=== PATIENT | female | born 1975 | race American Indian/Alaskan Native ===

== ENCOUNTER 2019-02-16 09:49 | Emergency (ER) | payer MEDICARE ==
[2019-02-16] MEDS ORDERED: LOPRESSOR PO ONE (10:39)
--- NOTE | 2019-02-16 10:42 | Emergency Department Report ---
ED Chest Pain HPI - General Chief Complaint: Chest Pain Stated Complaint: CHEST TIGHTNESS ON L SIDE Time Seen by Provider: 02/16/19 10:33 Source: patient Mode of arrival: Ambulatory Limitations: No Limitations - History of Present Illness Initial Comments: Patient is 43 years old female with history of hypertension, noncompliant with her medication. Patient presented to the ER complaining of chest pain started last night. Patient described her pain as heaviness with no radiation. Patient denied any shortness of breath, fever or chills. Patient found to have a blood pressure of 213/90. MD Complaint: chest pain -: Last night Onset: during rest Pain Location: left chest Quality: heaviness - Related Data Allergies Allergy/AdvReac Type Severity Reaction Status Date / Time codeine Allergy Nausea Verified 02/16/19 09:51 Heart Score - HEART Score History: Slightly suspicious EKG: Normal Age: < 45 Risk factors: 1-2 risk factors Troponin: < normal limit HEART Score: 1 - Critical Actions Critical Actions: 0-3 pts:0.9-1.7%risk of adverse cardiac event.Candidate for discharge ED Review of Systems ROS: Stated complaint: CHEST TIGHTNESS ON L SIDE Other details as noted in HPI Comment: All other systems reviewed and negative Constitutional: denies: chills, fever Respiratory: denies: cough, shortness of breath, SOB with exertion Cardiovascular: chest pain Gastrointestinal: denies: abdominal pain, nausea, vomiting, diarrhea, constipation, hematemesis, melena, hematochezia Musculoskeletal: denies: back pain Neurological: denies: headache, weakness, numbness, paresthesias, confusion, abnormal gait ED Past Medical Hx - Past Medical History Previous Medical History?: Yes Hx Hypertension: Yes Additional medical history: fibromyalgia - Surgical History Past Surgical History?: Yes Additional Surgical History: x 2 - Social History Smoking Status: Current Some Day Smoker Substance Use Type: Alcohol ED Physical Exam - General Limitations: No Limitations General appearance: alert, in no apparent distress - Head Head exam: Present: atraumatic, normocephalic, normal inspection - Eye Eye exam: Present: normal appearance - ENT ENT exam: Present: normal exam, normal orophraynx, mucous membranes moist - Neck Neck exam: Present: normal inspection, full ROM. Absent: tenderness, meningismus, lymphadenopathy - Respiratory Respiratory exam: Present: normal lung sounds bilaterally - Cardiovascular Cardiovascular Exam: Present: regular rate, normal rhythm, normal heart sounds - GI/Abdominal GI/Abdominal exam: Present: soft, normal bowel sounds. Absent: distended, tenderness, guarding, rebound, rigid, organomegaly, mass, bruit, pulsatile mass, hernia - Extremities Exam Extremities exam: Present: normal inspection, full ROM, normal capillary refill - Back Exam Back exam: Present: normal inspection, full ROM. Absent: CVA tenderness (R), CVA tenderness (L) - Neurological Exam Neurological exam: Present: alert, oriented X3, CN II-XII intact, normal gait, reflexes normal - Psychiatric Psychiatric exam: Present: normal mood - Skin Skin exam: Present: warm, intact, normal color ED Course Vital Signs 02/16/19 02/16/19 02/16/19 10:03 11:13 11:14 Temperature 98.8 F Pulse Rate 103 H 99 H 100 H Respiratory 16 20 Rate Blood Pressure 211/95 182/102 Blood Pressure 182/102 [Left] O2 Sat by Pulse 100 99 Oximetry 02/16/19 02/16/19 02/16/19 12:43 13:07 13:31 Temperature Pulse Rate 87 73 72 Respiratory Rate Blood Pressure 189/103 191/91 170/87 Blood Pressure [Left] O2 Sat by Pulse 99 96 Oximetry ED Medical Decision Making - Lab Data Result diagrams: 02/16/19 10:14 02/16/19 10:14 - EKG Data -: EKG Interpreted by Tn EKG shows normal: sinus rhythm Rate: normal - EKG Data Interpretation: no acute changes - Radiology Data Radiology results: report reviewed - Medical Decision Making Patient is 43 years old female with history of hypertension, noncompliant with her medication. Patient presented to the ER complaining of chest pain started last night. Patient described her pain as heaviness with no radiation. Patient denied any shortness of breath, fever or chills. Patient found to have a blood pressure of 213/90. Patient received metoprolol and clonidine. Patient stated that she is feeling much better. Labs reviewed and is unremarkable including 2 sets of troponin. Chest x-ray is unremarkable. Patient stated that chest pain is completely resolved. Patient advised to follow-up with her primary care physician in the next 2-3 days and return to the ER if symptoms are not improved. Critical care attestation.: If time is entered above; I have spent that time in minutes in the direct care of this critically ill patient, excluding procedure time. ED Disposition Clinical Impression: Chest pain, Malignant hypertension Disposition: DC-01 TO HOME OR SELFCARE Is pt being admited?: No Condition: Stable Instructions: Chest Pain (ED), Hypertension (ED) Referrals: PRIMARY CARE, [Primary Care Provider] - 3-5 Days
--- NOTE | 2019-02-16 10:51 | XRay Report ---
CHEST 2 VIEWS INDICATION: Chest Pain. COMPARISON: None FINDINGS: Support devices: None. Heart: Within normal limits. Lungs/pleura: No acute air space or interstitial disease. No pneumothorax. Additional findings: None. IMPRESSION: Chest x-ray within normal limits. Signer Name: Manuelito Seth Jr, MD Signed: 02/16/2019 10:46 AM Workstation Name: [id number]
[2019-02-16 10:56] LABS: Basophils % (Auto) 0.5 % (0.0-1.8); Eosinophils # (Auto) 0.1 K/mm3 (0.0-0.4); Eosinophils % (Auto) 1.5 % (0.0-4.3); Hematocrit 34.1 % (30.3-42.9); Hemoglobin 11.2 gm/dl (10.1-14.3); Lymphocytes # (Auto) 1.6 K/mm3 (1.2-5.4); Mean Corpuscular HGB Conc 33 % (30-34); Mean Corpuscular Volume 77 fl (79-97); Monocytes # (Auto) 0.3 K/mm3 (0.0-0.8); Monocytes % (Auto) 3.7 % (0.0-7.3); Platelet Count 537 K/mm3 (140-440); Red Blood Count 4.45 M/mm3 (3.65-5.03); Red Cell Distribution Width 17.3 % (13.2-15.2)
[2019-02-16 11:18] LABS: Alanine Aminotransferase 8 units/L (7-56); Albumin 4.4 g/dL (3.9-5); BUN/Creatinine Ratio 11; Blood Urea Nitrogen 8 mg/dL (7-17); Calcium 9.7 mg/dL (8.4-10.2); Hemolysis Index 5
[2019-02-16 12:08] LABS: Bacteria,Urine 1+ /HPF (Negative); Bilirubin,Urine NEG (Negative); Blood,Urine SM (Negative); Color,Urine Straw (Yellow); Mucus,Urine FEW /HPF; Protein,Urine <15 mg/dL mg/dL (Negative); Urobilinogen,Urine < 2.0 mg/dL (<2.0)
[2019-02-16] MEDS ORDERED: CATAPRES ONE (12:40)
[2019-02-16] MEDS ORDERED: CATAPRES PO ONE (12:42)
[2019-02-16 14:10] VITALS: BP 154/86
== END 2019-02-16 14:09 | disposition home or self-care (01) ==
LOC: ED 09:49
DX: I10 Essential (primary) hypertension (principal); M79.7 Fibromyalgia; F17.200 Nicotine dependence, unspecified, uncomplicated; Z88.5 Allergy status to narcotic agent
CPT/HCPCS: 36415; 71046; 80053; 81001; 84484; 85025; 93005; 93010; 99284

== ENCOUNTER 2019-02-21 13:02 | Observation (INO) | payer MEDICARE, OTHER ==
[2019-02-21] MEDS ORDERED: ASPIRIN PO ONE (13:28)
--- NOTE | 2019-02-21 13:29 | Event Note ---
ED Screening Note Date of service: 02/21/19 Time: 13:25 ED Screening Note: This is a 43 y.o. F. that presents to the ER with palpitations and chest pain. Reports symptoms started yesterday and progressing. PMH anxiety, fibromyalgia, & HTN Current smoker This initial assessment/diagnostic orders/clinical plan/treatment(s) is/are subject to change based on patients health status, clinical progression and re- assessment by fellow clinical providers in the ED. Further treatment and workup at subsequent clinical providers discretion. Patient/guardian urged not to elope from the ED as their condition may be serious if not clinically assessed and managed. Initial orders include: Labs, EKG, & CXR
[2019-02-21 14:24] LABS: Basophils # (Auto) 0.1 K/mm3 (0.0-0.1); Basophils % (Auto) 0.8 % (0.0-1.8); Eosinophils # (Auto) 0.1 K/mm3 (0.0-0.4); Eosinophils % (Auto) 1.3 % (0.0-4.3); Hematocrit 35.1 % (30.3-42.9); Hemoglobin 11.7 gm/dl (10.1-14.3); Lymphocytes # (Auto) 2.1 K/mm3 (1.2-5.4); Lymphocytes % (Auto) 19.3 % (13.4-35.0); Mean Corpuscular HGB Conc 33 % (30-34); Mean Corpuscular Volume 76 fl (79-97); Monocytes # (Auto) 0.5 K/mm3 (0.0-0.8); Monocytes % (Auto) 4.5 % (0.0-7.3); Platelet Count 554 K/mm3 (140-440); Red Blood Count 4.63 M/mm3 (3.65-5.03); Red Cell Distribution Width 16.7 % (13.2-15.2)
--- NOTE | 2019-02-21 14:44 | Emergency Department Report ---
ED Chest Pain HPI - General Chief Complaint: Chest Pain Stated Complaint: CHEST PAIN/PALPATION Time Seen by Provider: 02/21/19 13:25 Source: patient Mode of arrival: Ambulatory Limitations: No Limitations - History of Present Illness Initial Comments: This is a 43-year-old female that was seen at this facility on 02/18/2019 for chest pain and uncontrolled hypertension. Recurrent pain since last night which has affected her left arm and feels like tightness in the substernal area as well as the left arm. She states that she has felt anxious. She is felt as if her heart has been racing. She has been bit sweaty but not diaphoretic. She does refer nausea vomiting or shortness of breath sometimes. Patient states that quite a few years ago she had some vague evaluation for chest pain. She does not describe a heart cath. She does not really know whether stress test his either. In any case, she has no known history of coronary artery disease. She was given aspirin on arrival. MD Complaint: chest pain -: Gradual, days(s) Onset: during rest Pain Location: substernal Pain Radiation: LUE Severity: moderate Quality: tightness Consistency: intermittent Improves With: nothing Worsens With: nothing Context: other (none of the above) re: denies: diaphoresis (some sweating) Other Symptoms: denies: cough, fever, syncope Treatments Prior to Arrival: none Aspirin use within the Past 7 Days: (0) No - Related Data Previous Rx's Medication Instructions Recorded Last Taken Type amLODIPine [Norvasc] 10 mg PO DAILY #30 tab 02/16/19 Unknown Rx Allergies Allergy/AdvReac Type Severity Reaction Status Date / Time codeine Allergy Nausea Verified 02/16/19 09:51 Heart Score - HEART Score History: Moderately suspicious EKG: Significant ST-depression Age: 45-65 Risk factors: 1-2 risk factors Troponin: < normal limit HEART Score: 5 - Critical Actions Critical Actions: 4-6 pts:12-16.6% risk of adverse cardiac event. Should be admitted ED Review of Systems ROS: Stated complaint: CHEST PAIN/PALPATION Other details as noted in HPI Constitutional: denies: chills, fever Eyes: denies: eye pain, eye discharge, vision change ENT: denies: ear pain, throat pain Respiratory: denies: cough, wheezing Cardiovascular: chest pain. denies: palpitations Endocrine: no symptoms reported Gastrointestinal: denies: abdominal pain, nausea, diarrhea Genitourinary: denies: urgency, dysuria, discharge Musculoskeletal: denies: back pain, joint swelling, arthralgia Skin: denies: rash, lesions Neurological: denies: headache, weakness, paresthesias Psychiatric: denies: anxiety, depression Hematological/Lymphatic: denies: easy bleeding, easy bruising ED Past Medical Hx - Past Medical History Hx Hypertension: Yes Additional medical history: fibromyalgia - Surgical History Additional Surgical History: x 2 - Social History Smoking Status: Current Some Day Smoker Substance Use Type: Alcohol, Marijuana - Medications Home Medications: Home Medications Medication Instructions Recorded Confirmed Last Taken Type amLODIPine [Norvasc] 10 mg PO DAILY #30 tab 02/16/19 Unknown Rx ED Physical Exam - General Limitations: No Limitations General appearance: alert, in no apparent distress - Head Head exam: Present: atraumatic, normocephalic - Eye Eye exam: Present: normal appearance. Absent: scleral icterus - ENT ENT exam: Present: mucous membranes moist - Neck Neck exam: Present: normal inspection. Absent: tenderness, meningismus - Respiratory Respiratory exam: Present: normal lung sounds bilaterally. Absent: respiratory distress - Cardiovascular Cardiovascular Exam: Present: regular rate, normal rhythm. Absent: systolic murmur, diastolic murmur, rubs, gallop - GI/Abdominal GI/Abdominal exam: Present: soft, normal bowel sounds. Absent: distended, tenderness, guarding, rebound, rigid - Extremities Exam Extremities exam: Present: normal inspection, normal capillary refill. Absent: tenderness, pedal edema, joint swelling, calf tenderness - Back Exam Back exam: Present: normal inspection - Neurological Exam Neurological exam: Present: alert, oriented X3, CN II-XII intact. Absent: motor sensory deficit - Psychiatric Psychiatric exam: Present: normal affect, normal mood - Skin Skin exam: Present: warm, dry, intact, normal color. Absent: rash ED Course Vital Signs 02/21/19 02/21/19 13:26 15:31 Temperature 98.9 F Pulse Rate 126 H 106 H Respiratory 22 Rate Blood Pressure 184/108 184/85 O2 Sat by Pulse 100 Oximetry - Reevaluation(s) Reevaluation #1: Blood pressure management, and Ativan for anxiety, metoprolol. Patient was resting tachycardia. I have added a d-dimer. However patient does not seem to have a conforming history for pulmonary embolism nor any reasonable suspicion of TAD. 02/21/19 15:43 SHAHZAD score - Shahzad Score Age > 65: (0) No Aspirin use within the Past 7 Days: (0) No 3 or more CAD Risk Factors: (0) No 2 or more Angina events in past 24 hrs: (0) No Known CAD with more than 50% Stenosis: (0) No Elevated Cardiac Markers: (0) No ST Deviation Greater than 0.5mm: (1) Yes SHAHZAD Score: 1 ED Medical Decision Making - Lab Data Result diagrams: 02/21/19 14:09 02/21/19 14:09 Laboratory Results - last 24 hr 02/21/19 02/21/19 14:09 14:09 WBC 10.9 RBC 4.63 Hgb 11.7 Hct 35.1 MCV 76 L MCH 25 L MCHC 33 RDW 16.7 H Plt Count 554 H Lymph % (Auto) 19.3 [place] % (Auto) 4.5 Eos % (Auto) 1.3 Baso % (Auto) 0.8 Lymph # 2.1 [place] # 0.5 Eos # 0.1 Baso # 0.1 Seg Neutrophils % 74.1 H Seg Neutrophils # 8.1 H HCG, Qual Negative Laboratory Results - last 24 hr 02/21/19 02/21/19 02/21/19 14:09 14:09 14:09 WBC 10.9 RBC 4.63 Hgb 11.7 Hct 35.1 MCV 76 L MCH 25 L MCHC 33 RDW 16.7 H Plt Count 554 H Lymph % (Auto) 19.3 [place] % (Auto) 4.5 Eos % (Auto) 1.3 Baso % (Auto) 0.8 Lymph # 2.1 [place] # 0.5 Eos # 0.1 Baso # 0.1 Seg Neutrophils % 74.1 H Seg Neutrophils # 8.1 H Sodium 140 Potassium 3.7 Chloride 101.7 Carbon Dioxide 25 Anion Gap 17 BUN 11 Creatinine 1.0 Estimated GFR > 60 BUN/Creatinine Ratio 11 Glucose 105 H Calcium 9.6 Troponin T < 0.010 HCG, Qual Negative Laboratory Results - last 24 hr 02/21/19 02/21/19 02/21/19 14: 14:09 14:09 WBC 10.9 RBC 4.63 Hgb 11.7 Hct 35.1 MCV 76 L MCH 25 L MCHC 33 RDW 16.7 H Plt Count 554 H Lymph % (Auto) 19.3 [place] % (Auto) 4.5 Eos % (Auto) 1.3 Baso % (Auto) 0.8 Lymph # 2.1 [place] # 0.5 Eos # 0.1 Baso # 0.1 Seg Neutrophils % 74.1 H Seg Neutrophils # 8.1 H PT INR APTT Sodium 140 Potassium 3.7 Chloride 101.7 Carbon Dioxide 25 Anion Gap 17 BUN 11 Creatinine 1.0 Estimated GFR > 60 BUN/Creatinine Ratio 11 Glucose 105 H Calcium 9.6 Troponin T < 0.010 HCG, Qual Negative 02/21/19 15:22 WBC RBC Hgb Hct MCV MCH MCHC RDW Plt Count Lymph % (Auto) [place] % (Auto) Eos % (Auto) Baso % (Auto) Lymph # [place] # Eos # Baso # Seg Neutrophils % Seg Neutrophils # PT 13.2 INR 1.03 APTT 28.4 Sodium Potassium Chloride Carbon Dioxide Anion Gap BUN Creatinine Estimated GFR BUN/Creatinine Ratio Glucose Calcium Troponin T HCG, Qual - EKG Data -: EKG Interpreted by Ma EKG shows normal: sinus rhythm Rate: tachycardia - EKG Data Interpretation: other (nonspecific inferior ST depressions, QS in V2 possibly consistent with old zone. No significant change from 02/18/2019) Chest x-ray shows normal mediastinum and normal cardiac silhouette, no acute process 02/21/19 15:48 Critical care attestation.: If time is entered above; I have spent that time in minutes in the direct care of this critically ill patient, excluding procedure time. ED Disposition Clinical Impression: Uncontrolled hypertension, Tachycardia Chest pain Qualifiers: Chest pain type: unspecified Qualified Code(s): R07.9 - Chest pain, unspecified Disposition: OP ADMIT IP TO THIS HOSP Is pt being admited?: Yes Does the pt Need Aspirin: Yes Condition: Stable Instructions: Chest Pain (ED), Hypertension (ED) Time of Disposition: 15:49
[2019-02-21 14:49] LABS: BUN/Creatinine Ratio 11; Blood Urea Nitrogen 11 mg/dL (7-17); Calcium 9.6 mg/dL (8.4-10.2); Hemolysis Index 2
[2019-02-21] MEDS ORDERED: LOPRESSOR PO ONE (14:57)
[2019-02-21] MEDS ORDERED: ATIVAN IV ONE (14:57)
[2019-02-21] MEDS ORDERED: NITRO-BID 2% TP ONE (14:58)
[2019-02-21 15:48] LABS: INR 1.03 (0.87-1.13)
[2019-02-21 15:49] LABS: Partial Thromboplastin Time 28.4 Sec. (24.2-36.6)
[2019-02-21 16:12] LABS: Free T4 (Free Thyroxine) 1.33 ng/dL (0.76-1.46)
[2019-02-21 16:50] LABS: Creatine Kinase MB < 1.0 ng/mL (0.0-4.0)
[2019-02-21 17:10] LABS: Alanine Aminotransferase 8 units/L (7-56); Albumin 4.6 g/dL (3.9-5)
[2019-02-21 17:20] LABS: Bilirubin,Direct < 0.2 mg/dL (0-0.2)
--- NOTE | 2019-02-21 19:13 | XRay Report ---
CHEST 1 VIEW INDICATION: Chest Pain. COMPARISON: 02/16/2019. FINDINGS: Support devices: None. Heart: Normal. Lungs/Pleura: No acute pulmonary or pleural findings. IMPRESSION: 1. No acute findings. Signer Name: Reynold Nicole MD Signed: 02/21/2019 7:09 PM Workstation Name: [id number]
[2019-02-21] MEDS ORDERED: TYLENOL PO PRN ×2 (20:12→21:58)
[2019-02-21] MEDS ORDERED: RESTORIL PO PRN (20:39)
--- NOTE | 2019-02-21 21:45 | History and Physical Report ---
History of Present Illness Date of examination: 02/21/19 Date of admission: 02/21/19 15:35 Chief complaint: Chest pain since a.m. History of present illness: 42-year-old female with history of hypertension--noncompliant and not taking her medications for the last 3 months comes in for chest pain and high blood pressure. Patient has chest pain since last night which is retrosternal and precordial. Chest pain radiating to left arm. No diaphoresis or shortness of breath. Her blood pressure has been very high in the emergency room. Heart blood pressure was 184/108. In the emergency room. No exacerbating or relieving factors. Chest pain is exertional related. Past Medical History Hx Hypertension: Yes Additional medical history: fibromyalgia Surgical History Additional Surgical History: x 2 Social History Smoking Status: Current Some Day Smoker Substance Use Type: Alcohol, Marijuana Family history Htn Medications Home Medications: Home Medications Medication Instructions Recorded Confirmed Last Taken Type amLODIPine [Norvasc] 10 mg PO DAILY #30 tab 02/16/19 Unknown Rx Review of Systems ROS: Stated complaint: CHEST PAIN/PALPATION Other details as noted in HPI Constitutional: denies: chills, fever Eyes: denies: eye pain, eye discharge, vision change ENT: denies: ear pain, throat pain Respiratory: denies: cough, wheezing Cardiovascular: chest pain. denies: palpitations Endocrine: no symptoms reported Gastrointestinal: denies: abdominal pain, nausea, diarrhea Genitourinary: denies: urgency, dysuria, discharge Musculoskeletal: denies: back pain, joint swelling, arthralgia Skin: denies: rash, lesions Neurological: denies: headache, weakness, paresthesias Psychiatric: denies: anxiety, depression Hematological/Lymphatic: denies: easy bleeding, easy bruising Medications and Allergies Allergies Allergy/AdvReac Type Severity Reaction Status Date / Time codeine Allergy Nausea Verified 02/16/19 09:51 Home Medications Medication Instructions Recorded Confirmed Last Taken Type amLODIPine [Norvasc] 10 mg PO DAILY #30 tab 02/16/19 Unknown Rx Active Meds: Active Medications Acetaminophen (Tylenol) 650 mg PO Q4H PRN PRN Reason: Pain, Mild (1-3), fever>100.5 Last Admin: 02/21/19 20:28 Dose: 650 mg Documented by: Aspirin (Aspirin) 325 mg PO QDAY LAUREANO Temazepam (Restoril) 15 mg PO QHS PRN PRN Reason: Sleep Exam - Constitutional Vitals: Temp Pulse Resp BP Pulse Ox 98.2 F 92 H 18 162/94 100 02/21/19 19:50 02/21/19 19:50 02/21/19 20:28 02/21/19 19:50 02/21/19 19:50 General appearance: Present: no acute distress, well-nourished - EENT Eyes: Present: PERRL ENT: hearing intact, clear oral mucosa - Neck Neck: Present: supple, normal ROM - Respiratory Respiratory effort: normal Respiratory: bilateral: CTA - Cardiovascular Heart rate: 84 Rhythm: regular Heart Sounds: Present: S1 & S2. Absent: rub, click - Extremities Extremities: pulses symmetrical, No edema Peripheral Pulses: within normal limits - Abdominal General gastrointestinal: Present: soft, non-tender, non-distended, normal bowel sounds Female genitourinary: Present: normal - Integumentary Integumentary: Present: clear, warm, dry - Musculoskeletal Musculoskeletal: gait normal, strength equal bilaterally - Psychiatric Psychiatric: appropriate mood/affect, intact judgment & insight - Neurologic Neurologic: CNII-XII intact, moves all extremities Results - Labs CBC & Chem 7: 02/21/19 14:09 02/21/19 14:09 Labs: Laboratory Last Values WBC 10.9 K/mm3 (4.5-11.0) 02/21/19 14:09 RBC 4.63 M/mm3 (3.65-5.03) 02/21/19 14:09 Hgb 11.7 gm/dl (10.1-14.3) 02/21/19 14:09 Hct 35.1 % (30.3-42.9) 02/21/19 14:09 MCV 76 fl (79-97) L 02/21/19 14:09 MCH 25 pg (28-32) L 02/21/19 14:09 MCHC 33 % (30-34) 02/21/19 14:09 RDW 16.7 % (13.2-15.2) H 02/21/19 14:09 Plt Count 554 K/mm3 (140-440) H 02/21/19 14:09 Lymph % (Auto) 19.3 % (13.4-35.0) 02/21/19 14:09 [place] % (Auto) 4.5 % (0.0-7.3) 02/21/19 14:09 Eos % (Auto) 1.3 % (0.0-4.3) 02/21/19 14:09 Baso % (Auto) 0.8 % (0.0-1.8) 02/21/19 14:09 Lymph # 2.1 K/mm3 (1.2-5.4) 02/21/19 14:09 [place] # 0.5 K/mm3 (0.0-0.8) 02/21/19 14:09 Eos # 0.1 K/mm3 (0.0-0.4) 02/21/19 14:09 Baso # 0.1 K/mm3 (0.0-0.1) 02/21/19 14:09 Seg Neutrophils % 74.1 % (40.0-70.0) H 02/21/19 14:09 Seg Neutrophils # 8.1 K/mm3 (1.8-7.7) H 02/21/19 14:09 PT 13.2 Sec. (12.2-14.9) 02/21/19 15:22 INR 1.03 (0.87-1.13) 02/21/19 15:22 APTT 28.4 Sec. (24.2-36.6) 02/21/19 15:22 276.47 ng/mlDDU (0-234) H 02/21/19 15:22 Sodium 140 mmol/L (137-145) 02/21/19 14:09 Potassium 3.7 mmol/L (3.6-5.0) 02/21/19 14:09 Chloride 101.7 mmol/L (98-107) 02/21/19 14:09 Carbon Dioxide 25 mmol/L (22-30) 02/21/19 14:09 17 mmol/L 02/21/19 14:09 BUN 11 mg/dL (7-17) 02/21/19 14:09 1.0 mg/dL (0.7-1.2) 02/21/19 14:09 Estimated GFR > 60 ml/min 02/21/19 14:09 11 % 02/21/19 14:09 Glucose 105 mg/dL (65-100) H 02/21/19 14:09 Calcium 9.6 mg/dL (8.4-10.2) 02/21/19 14:09 Magnesium 2.00 mg/dL (1.7-2.3) 02/21/19 15:22 0.20 mg/dL (0.1-1.2) 02/21/19 15:22 < 0.2 mg/dL (0-0.2) 02/21/19 15:22 0.0 mg/dL 02/21/19 15:22 AST 10 units/L (5-40) 02/21/19 15:22 ALT 8 units/L (7-56) 02/21/19 15:22 91 units/L (35-129) 02/21/19 15:22 23 units/L (30-135) L 02/21/19 15:22 CK-MB (CK-2) < 1.0 ng/mL (0.0-4.0) 02/21/19 15:22 CK-MB (CK-2) Rel Index 4.3 (0-4) H 02/21/19 15:22 < 0.010 ng/mL (0.00-0.029) 02/21/19 19:13 NT-Pro-B Natriuret Pep 43.67 pg/mL (0-450) 02/21/19 15:22 7.5 g/dL (6.3-8.2) 02/21/19 15:22 4.6 g/dL (3.9-5) 02/21/19 15:22 1.6 % 02/21/19 15:22 TSH 1.000 mlU/mL (0.270-4.200) 02/21/19 15:22 Free T4 1.33 ng/dL (0.76-1.46) 02/21/19 15:22 HCG, Qual Negative (Negative) 02/21/19 14:09 Short CBC 02/21/19 Range/Units 14:09 WBC 10.9 (4.5-11.0) K/mm3 Hgb 11.7 (10.1-14.3) gm/dl Hct 35.1 (30.3-42.9) % Plt Count 554 H (140-440) K/mm3 BMP 02/21/19 14:09 Sodium 140 Potassium 3.7 Chloride 101.7 Carbon Dioxide 25 BUN 11 Creatinine 1.0 Glucose 105 H Calcium 9.6 Cardiac Enzymes 02/21/19 02/21/19 02/21/19 Range/Units 14:09 15:22 19:13 Total Creatine Kinase 23 L (30-135) units/L CK-MB (CK-2) < 1.0 (0.0-4.0) ng/mL Troponin T < 0.010 < 0.010 < 0.010 (0.00-0.029) ng/mL Liver Function 02/21/19 Range/Units 15:22 Total Bilirubin 0.20 (0.1-1.2) mg/dL Direct Bilirubin < 0.2 (0-0.2) mg/dL AST 10 (5-40) units/L ALT 8 (7-56) units/L Alkaline Phosphatase 91 (35-129) units/L Albumin 4.6 (3.9-5) g/dL - Imaging and Cardiology EKG: report reviewed (sinus rhythm, heart rate of 84/m, probable left atrial enlargement.) Chest x-ray: report reviewed (NAF) Assessment and Plan Advance Directives: Yes (full code) VTE prophylaxis?: Chemical Plan of care discussed with patient/family: Yes - Patient Problems (1) Chest pain Current Visit: Yes Status: Acute Qualifiers: Chest pain type: unspecified Qualified Code(s): R07.9 - Chest pain, unspecified Plan to address problem: Chest pain rule out NM protocol Serial troponins Lexiscan in a.m. Cardiology consult requested Costochondritis and GERD in the differential diagnosis (2) Hypertensive emergency Current Visit: Yes Status: Acute Plan to address problem: Patient started on losartan 100 mg once a day amlodipine 10 mg once a day and Coreg 6.25 every 12 (3) Noncompliance Current Visit: Yes Status: Acute Plan to address problem: Patient counseled (4) DVT prophylaxis Current Visit: Yes Status: Acute Plan to address problem: On Lovenox and GI prophylaxis
[2019-02-21] MEDS ORDERED: REGLAN IV PRN (21:58)
[2019-02-21] MEDS ORDERED: PERCOCET 5/325 PO PRN (21:58)
[2019-02-21] MEDS ORDERED: ZOFRAN IV PRN (21:58)
[2019-02-21] MEDS ORDERED: DILAUDID IV PRN (21:58)
[2019-02-21] MEDS ORDERED: SODIUM CHLORIDE FLUSH SYRINGE 10 ML IV PRN (21:58)
[2019-02-21] MEDS ORDERED: APRESOLINE IV PRN (22:07)
[2019-02-21] MEDS ORDERED: NORVASC PO SCH (22:07)
[2019-02-22] MEDS: SODIUM CHLORIDE FLUSH SYRINGE 10 ML IV SCH ×2 (00:02→11:00)
[2019-02-22] MEDS: COREG PO SCH ×2 (00:07→11:00)
[2019-02-22 05:59] LABS: Amphetamine Screen,Urine PRESUMPTIVE NEGATIVE; Benzodiazepines Screen,Urine PRESUMPTIVE NEGATIVE; Cocaine Screen,Urine PRESUMPTIVE NEGATIVE; Methadone Screen,Urine PRESUMPTIVE NEGATIVE; Opiate Screen,Urine PRESUMPTIVE NEGATIVE
[2019-02-22 06:15] LABS: Cannabinoid Screen,Urine PRESUMPTIVE POSITIVE
[2019-02-22] MEDS ORDERED: LEXISCAN IV ONE (07:29)
[2019-02-22 08:57] LABS: Alanine Aminotransferase 9 units/L (7-56); Albumin 4.7 g/dL (3.9-5); BUN/Creatinine Ratio 13; Blood Urea Nitrogen 12 mg/dL (7-17); Calcium 9.7 mg/dL (8.4-10.2); Hemolysis Index 1
[2019-02-22] MEDS ORDERED: TYLENOL ONE (09:57)
[2019-02-22] MEDS ORDERED: ASPIRIN PO SCH (10:00)
[2019-02-22] MEDS ORDERED: NORVASC PO SCH (10:00)
[2019-02-22] MEDS: COZAAR PO SCH ×2 (11:00)
[2019-02-22] MEDS: PEPCID PO SCH ×2 (11:00)
[2019-02-22 12:23] VITALS: BP 120/83
--- NOTE | 2019-02-22 13:37 | Treadmill Report ---
NUCLEAR PERFUSION STUDY REASON FOR STUDY: Chest pain. READING PHYSICIAN: Dr. Denson. IMAGING PROTOCOL: The patient received 10 mCi of Technetium 99m Tetrofosmin for resting image and 28 mCi of Technetium 99m Tetrofosmin for stress imaging. The imaging for the whole procedure was completed 30-90 minutes following the initial injection of Technetium 99m Tetrofosmin. The SPECT imaging in the 180 degree arc was performed in the right anterior oblique projection. Computerized reconstruction of the images was performed for analysis. IMAGING RESULTS: Normal cavity size from stress to rest. Normal distribution of radionuclide in the anterior, inferior, septal, and apical regions. Gated SPECT, EF of 55% with no wall motion abnormality. The patient infused Lexiscan with no EKG changes. SUMMARY: 1. Negative Lexiscan EKG. 2. Normal rest and stress, normal myocardial SPECT perfusion. No significant ischemia. Gated SPECT, EF 55%. JOB# [id number] TOMMY/DANA
--- NOTE | 2019-02-22 14:49 | Consultation ---
History of Present Illness Consult date: 02/22/19 Requesting physician: KARINA GLASS Consult reason: chest pain History of present illness: The pt is a 42-year-old female with history of hypertension--noncompliant and not taking her medications for the last 3 months. She is previously unknown to our practice. She presented with c/o chest pain, palpitations and minimal exertional dyspnea for 2-3 months. She describes her chest pain as an intermittent midsternal and left-sided pressure which is sometimes aggravated with exertion. She denies any n/v, diaphoresis, dizziness or syncope. She denies any known prior cardiac issues, including CAD, AMI, HF or arrhythmia. Past History Past Medical History: hypertension Medications and Allergies Allergies Allergy/AdvReac Type Severity Reaction Status Date / Time codeine Allergy Nausea Verified 02/16/19 09:51 Home Medications Medication Instructions Recorded Confirmed Last Taken Type Carvedilol [Coreg] 6.25 mg PO BID #60 tablet 02/22/19 Unknown Rx Losartan [Cozaar] 100 mg PO QDAY #60 tablet 02/22/19 Unknown Rx amLODIPine [Norvasc] 10 mg PO DAILY #30 tab 02/22/19 Unknown Rx Active Meds: Active Medications Acetaminophen (Tylenol) 650 mg PO Q4H PRN PRN Reason: Pain MILD(1-3)/Fever >100.5/ALLISON Last Admin: 02/22/19 09:57 Dose: 650 mg Documented by: Amlodipine Besylate (Norvasc) 10 mg PO QDAY [facility] Last Admin: 02/22/19 11:00 Dose: 10 mg Documented by: Aspirin (Aspirin) 325 mg PO QDAY [facility] Last Admin: 02/22/19 11:00 Dose: 325 mg Documented by: Carvedilol (Coreg) 6.25 mg PO BID [facility] Last Admin: 02/22/19 11:00 Dose: 6.25 mg Documented by: Enoxaparin Sodium (Lovenox) 40 mg SUB-Q QDAY@2200 [facility] Famotidine (Pepcid) 20 mg PO BID [facility] Last Admin: 02/22/19 11:00 Dose: 20 mg Documented by: Hydralazine HCl (Apresoline) 20 mg IV Q3H PRN PRN Reason: Blood Pressure Hydromorphone HCl (Dilaudid) 0.5 mg IV Q3H PRN PRN Reason: Pain , Severe (7-10) Losartan Potassium (Cozaar) 100 mg PO QDAY [facility] Last Admin: 02/22/19 11:00 Dose: 100 mg Documented by: Metoclopramide HCl (Reglan) 10 mg IV Q6H PRN PRN Reason: Nausea And Vomiting Ondansetron HCl (Zofran) 4 mg IV Q8H PRN PRN Reason: Nausea And Vomiting Oxycodone/Acetaminophen (Percocet 5/325) 1 tab PO Q6H PRN PRN Reason: Pain, Moderate (4-6) Sodium Chloride (Sodium Chloride Flush Syringe 10 Ml) 10 ml IV BID [facility] Last Admin: 02/22/19 11:00 Dose: 10 ml Documented by: Sodium Chloride (Sodium Chloride Flush Syringe 10 Ml) 10 ml IV PRN PRN PRN Reason: LINE FLUSH Temazepam (Restoril) 15 mg PO QHS PRN PRN Reason: Sleep Last Admin: 02/21/19 22:06 Dose: 15 mg Documented by: Review of Systems Constitutional: no weight loss, no weight gain, no fever, no chills, no sweats Ears, nose, mouth and throat: no ear pain, no nose pain, no sinus pressure, no sinus pain Cardiovascular: chest pain, palpitations, shortness of breath, dyspnea on exertion, high blood pressure, no orthopnea, no edema, no syncope, no lightheadedness Respiratory: shortness of breath, dyspnea on exertion, no cough, no congestion, no wheezing, no pain on inspiration Gastrointestinal: no abdominal pain, no nausea, no vomiting, no diarrhea, no constipation, no change in bowel habits Genitourinary Female: no pelvic pain, no flank pain, no dysuria, no urinary frequency, no urgency Musculoskeletal: no neck stiffness, no neck pain, no shooting arm pain, no arm numbness/tingling, no low back pain, no shooting leg pain Integumentary: no rash, no pruritis, no redness, no sores, no wounds Neurological: no head injury, no paralysis, no weakness, no parathesias, no numbness, no tingling, no seizures, no syncope Psychiatric: no anxiety Endocrine: no cold intolerance, no heat intolerance Hematologic/Lymphatic: no easy bruising, no easy bleeding Allergic/Immunologic: no urticaria, no wheezing Physical Examination Vital Signs Temp Pulse Resp BP Pulse Ox 98.9 F 126 H 22 184/108 100 02/21/19 13:26 02/21/19 13:26 02/21/19 13:26 02/21/19 13:02/21/19 13:26 General appearance: no acute distress HEENT: Positive: PERRL, Normocephaly, Mucus Membranes Moist Neck: Positive: neck supple, trachea midline Cardiac: Positive: Reg Rate and Rhythm, S1/S2 Lungs: Positive: Decreased Breath Sounds Neuro: Positive: Grossly Intact Abdomen: Negative: Tender Skin: Negative: Rash Musculoskeletal: No Pain Extremities: Absent: edema Results 02/21/19 14:02/22/19 07:51 Cardiac Enzymes 02/21/19 02/21/19 02/22/19 Range/Units 15:22 15: 07:51 AST 10 10 (5-40) units/L CK-MB (CK-2) < 1.0 (0.0-4.0) ng/mL Coagulation 02/21/19 Range/Units 15:22 PT 13.2 (12.2-14.9) Sec. INR 1.03 (0.87-1.13) APTT 28.4 (24.2-36.6) Sec. Comprehensive Metabolic Panel 02/21/19 02/21/19 02/22/19 Range/Units 14:09 15:22 07:51 Sodium 140 140 (137-145) mmol/L Potassium 3.7 3.3 L (3.6-5.0) mmol/L Chloride 101.7 101.5 (98-107) mmol/L Carbon Dioxide 25 24 (22-30) mmol/L BUN 11 12 (7-17) mg/dL Creatinine 1.0 0.9 (0.7-1.2) mg/dL Glucose 105 H 79 (65-100) mg/dL Calcium 9.6 9.7 (8.4-10.2) mg/dL Direct Bilirubin < 0.2 (0-0.2) mg/dL Indirect Bilirubin 0.0 mg/dL AST 10 10 (5-40) units/L ALT 8 9 (7-56) units/L Alkaline Phosphatase 91 95 (35-129) units/L Total Protein 7.5 8.5 H (6.3-8.2) g/dL Albumin 4.6 4.7 (3.9-5) g/dL - Imaging and Cardiology Echo: report reviewed EKG: report reviewed, image reviewed EKG interpretations - Telemetry EKG Rhythm: Sinus Rhythm - EKG Sinus rhythms and dysrhythmias: sinus rhythm Assessment and Plan Pt presented with uncontrolled HTN, chest pain, palpitations and minimal exertional dyspnea for 2-3 months. She underwent lexiscan MPI stress test this AM which was negative. Echo reviewed - EF 45-50%, mild LVH, no significant valvular abnormalities. Pt was noted to have 12 beat run NSVT with freq PVCs overnight. TSH WNL. Will replete K+, serum Mg WNL, and recommend continuation of current anti-hypertensive regimen, including coreg, amlodipine and losartan. If palpitations persist, can consider OP Holter study. DDimer minimally elevated - unclear significance. Can consider further eval per primary. Currently stable cardiac status. Pt reports resolution of chest pain. Pt may discharge home from cardiology standpoint. Recommend follow up in our office with Dr. Ziegler within 1-2 weeks of hospital discharge ([phone]). The patient has been seen in conjunction with Dr. Ziegler who agrees with the assessment and plan of care. - Patient Problems (1) Chest pain Current Visit: Yes Status: Resolved Qualifiers: Chest pain type: unspecified Qualified Code(s): R07.9 - Chest pain, unspecified (2) Palpitations Current Visit: Yes Status: Chronic (3) Uncontrolled hypertension Current Visit: Yes Status: Chronic (4) Noncompliance Current Visit: Yes Status: Chronic (5) NSVT (nonsustained ventricular tachycardia) Current Visit: Yes Status: Acute (6) Hypokalemia Current Visit: Yes Status: Acute
--- NOTE | 2019-02-22 15:25 | Discharge Summary ---
Providers - Providers Date of Admission: 02/21/19 15:35 Attending physician: SOBIA HERCULES MD 02/21/19 21:58 Consult to Physician [CONS] Routine Comment: Consulting Provider: FREDA ALMAGUER Physician Instructions: Reason For Exam: chest pain Primary care physician: JORGE L THOMAS MD Hospitalization Condition: Stable Disposition: DC-01 TO HOME OR SELFCARE Exam - Constitutional Vitals: Temp Pulse Resp BP Pulse Ox 98.7 F 95 H 18 120/83 100 02/22/19 12:22 02/22/19 12:22 02/22/19 12:22 02/22/19 12:22 02/22/19 12:22 Plan Activity: advance as tolerated, fall precautions Diet: low fat, low salt Special Instructions: record daily weights, record daily BP diary Follow up with: JORGE L THOMAS MD [Primary Care Provider] - 7 Days MATIAS HARRIS MD [Staff Physician] - 3 Days (for holter monitor) Prescriptions: Carvedilol [Coreg] 6.25 mg PO BID #60 tablet Losartan [Cozaar] 100 mg PO QDAY #60 tablet amLODIPine [Norvasc] 10 mg PO DAILY #30 tab
[2019-02-22] MEDS ORDERED: K-DUR PO ONE (15:54)
[2019-02-22] MEDS ORDERED: LOVENOX SUB-Q SCH (22:00)
== END 2019-02-22 17:21 | disposition home or self-care (01) ==
LOC: ED 13:02 → INTOOBSV 15:35 → 4A 15:35
PROVIDERS: ADMIT Internal Medicine; ATTEND Internal Medicine
DX: R07.89 Other chest pain (principal); I16.1 Hypertensive emergency; I10 Essential (primary) hypertension; I47.1 Supraventricular tachycardia; E87.6 Hypokalemia; K21.9 Gastro-esophageal reflux disease without esophagitis; F17.200 Nicotine dependence, unspecified, uncomplicated; Z91.19 Patient's noncompliance with other medical treatment and regimen; Z82.49 Family history of ischemic heart disease and other diseases of the circulatory system; Z79.899 Other long term (current) drug therapy
CPT/HCPCS: 36415; 71045; 78452; 80048; 80053; 80076; 80307; 82550; 82553; 83036; 83735; 83880; 84439; 84443; 84484; 84703; 85025; 85379; 85610; 85730; 93005; 93010; 93017; 93306; 96374; 96375; 99284; A9502; G0378; J2060; J2405; J2785

== ENCOUNTER 2019-03-16 10:09 | Emergency (ER) | payer OTHER ==
--- NOTE | 2019-03-16 11:11 | XRay Report ---
CHEST 2 VIEWS INDICATION: Chest Pain. COMPARISON: 02/25/2019 FINDINGS: Support devices: None. Heart: Within normal limits. Pulmonary vasculature: Normal. Lungs/pleura: Lungs are normally expanded and clear. No pleural effusion. No pneumothorax. Additional findings: Degenerative change in the spine. IMPRESSION: No acute cardiopulmonary process. Signer Name: Ellis Trivedi MD Signed: 03/16/2019 11:06 AM Workstation Name: [id number]
[2019-03-16 11:28] LABS: Basophils % (Auto) 0.6 % (0.0-1.8); Eosinophils # (Auto) 0.1 K/mm3 (0.0-0.4); Eosinophils % (Auto) 1.8 % (0.0-4.3); Hematocrit 33.2 % (30.3-42.9); Hemoglobin 11.1 gm/dl (10.1-14.3); Lymphocytes # (Auto) 1.3 K/mm3 (1.2-5.4); Lymphocytes % (Auto) 19.2 % (13.4-35.0); Mean Corpuscular HGB Conc 34 % (30-34); Mean Corpuscular Volume 76 fl (79-97); Monocytes # (Auto) 0.4 K/mm3 (0.0-0.8); Monocytes % (Auto) 5.9 % (0.0-7.3); Platelet Count 525 K/mm3 (140-440); Red Blood Count 4.37 M/mm3 (3.65-5.03); Red Cell Distribution Width 16.4 % (13.2-15.2)
[2019-03-16] MEDS ORDERED: ACETAMINOPHEN 325 MG TAB PO ONE (11:57)
[2019-03-16] MEDS ORDERED: KETOROLAC 30 MG/1 ML INJ IM ONE (11:57)
--- NOTE | 2019-03-16 11:58 | Emergency Department Report ---
ED General Adult HPI - General Chief complaint: Chest Pain Stated complaint: CHEST PAIN/LFT ARM PAIN Time Seen by Provider: 03/16/19 11:01 Source: patient, RN notes reviewed, old records reviewed Mode of arrival: Ambulatory Limitations: No Limitations - History of Present Illness Initial comments: During the history and physical, I am support specialist, escorted by ER fitness technician Rossi Rea This is a 43-year-old female. This patient is not known to this provider previously. The patient has a history of fibromyalgia and hypertension and chest pain. Patient was recently admitted for chest pain, and had an unremarkable and normal cardiac catheterization. She also recently had a CT scan of the chest which was negative for acute disease. Today, the patient presents to the ER with a complaint of nontraumatic left-sided trapezius pain. This is accompanied by left arm pain, otherwise body aches, dry mouth, chills, malaise, fatigue. The patient denies headache, central neck pain, blurry vision, makes no complaint of chest pain, makes no complete abdominal pain, no complaint of shortness of breath, no complaint of urinary symptoms. The left trapezius pain as sharp and throbbing, increases with palpation and decreases with rest. No recent chiropractic manipulation, no recent motor vehicle accident. -: Gradual, days(s) Location: left, upper extremity Radiation: non-radiation Severity scale (0 -10): 0 Quality: aching Consistency: intermittent Improves with: rest Worsens with: movement - Related Data Home Medications Medication Instructions Recorded Confirmed Last Taken PARoxetine 20 PO DAILY 02/25/19 1 Day Ago ~02/24/19 Pantoprazole Sodium [Protonix] 40 mg PO 02/25/19 1 Day Ago ~02/24/19 Previous Rx's Medication Instructions Recorded Last Taken Type Carvedilol [Coreg] 6.25 mg PO BID #60 tablet 02/22/19 1 Day Ago Rx ~02/24/19 Losartan [Cozaar] 100 mg PO QDAY #60 tablet 02/22/19 1 Day Ago Rx ~02/24/19 amLODIPine [Norvasc] 10 mg PO DAILY #30 tab 02/22/19 1 Day Ago Rx ~02/24/19 Aspirin EC [Halfprin EC] 81 mg PO QDAY #30 02/26/19 Unknown Rx LORazepam [Ativan] 0.5 mg PO Q6H PRN #12 tablet 02/26/19 Unknown Rx Ondansetron [Zofran Odt] 4 mg PO Q8HR PRN #12 tab.rapdis 02/26/19 Unknown Rx Acetaminophen [Non-Aspirin Extra 500 mg PO Q6HR PRN #30 tablet 03/16/19 Unknown Rx Strength] Ibuprofen [Motrin] 600 mg PO Q8H PRN #30 tablet 03/16/19 Unknown Rx Allergies Allergy/AdvReac Type Severity Reaction Status Date / Time codeine Allergy Nausea Verified 03/16/19 10:24 ED Review of Systems ROS: Stated complaint: CHEST PAIN/LFT ARM PAIN Other details as noted in HPI Constitutional: chills, malaise. denies: fever Eyes: denies: eye discharge ENT: denies: congestion Respiratory: denies: cough, shortness of breath, SOB with exertion, SOB at rest, wheezing Cardiovascular: denies: chest pain Genitourinary: denies: dysuria Musculoskeletal: arthralgia, myalgia Skin: denies: lesions Neurological: weakness Psychiatric: anxiety Hematological/Lymphatic: denies: easy bleeding ED Past Medical Hx - Past Medical History Previous Medical History?: Yes Hx Hypertension: Yes Hx Congestive Heart Failure: No Hx Diabetes: No Hx Psychiatric Treatment: Yes (Anxiety) Hx Asthma: No Hx COPD: No Hx HIV: No Additional medical history: fibromyalgia - Surgical History Past Surgical History?: Yes Additional Surgical History: x 2. left ovary removal - Social History Smoking Status: Never Smoker Substance Use Type: None - Medications Home Medications: Home Medications Medication Instructions Recorded Confirmed Last Taken Type Carvedilol [Coreg] 6.25 mg PO BID #60 tablet 02/22/19 1 Day Ago Rx ~02/24/19 Losartan [Cozaar] 100 mg PO QDAY #60 tablet 02/22/19 1 Day Ago Rx ~02/24/19 amLODIPine [Norvasc] 10 mg PO DAILY #30 tab 02/22/19 02/25/19 1 Day Ago Rx ~02/24/19 PARoxetine 20 PO DAILY 02/25/19 1 Day Ago History ~02/24/19 Pantoprazole Sodium [Protonix] 40 mg PO 02/25/19 1 Day Ago History ~02/24/19 Aspirin EC [Halfprin EC] 81 mg PO QDAY #30 tablet. 02/26/19 Unknown Rx LORazepam [Ativan] 0.5 mg PO Q6H PRN #12 tablet 02/26/19 Unknown Rx Ondansetron [Zofran Odt] 4 mg PO Q8HR PRN #12 tab.rapdis 02/26/19 Unknown Rx Acetaminophen [Non-Aspirin Extra 500 mg PO Q6HR PRN #30 tablet 03/16/19 Unknown Rx Strength] Ibuprofen [Motrin] 600 mg PO Q8H PRN #30 tablet 03/16/19 Unknown Rx ED Physical Exam - General Limitations: No Limitations General appearance: alert, anxious - Head Head exam: Present: atraumatic, normocephalic - Eye Eye exam: Present: normal appearance, EOMI. Absent: nystagmus - ENT ENT exam: Present: normal exam, normal orophraynx, mucous membranes moist, normal external ear exam - Neck Neck exam: Present: normal inspection, full ROM. Absent: tenderness, meningismus - Respiratory Respiratory exam: Present: normal lung sounds bilaterally. Absent: respiratory distress - Cardiovascular Cardiovascular Exam: Present: regular rate, normal rhythm, normal heart sounds. Absent: bradycardia, tachycardia, irregular rhythm, systolic murmur, diastolic murmur, rubs, gallop - GI/Abdominal GI/Abdominal exam: Present: soft. Absent: distended, tenderness, guarding, rebound, rigid, pulsatile mass - Extremities Exam Extremities exam: Present: normal inspection, full ROM, other (2+ pulses noted in the bilateral upper, lower extremities. Compartments soft. No long bony tenderness. The pelvis is stable.). Absent: pedal edema, calf tenderness - Back Exam Back exam: Present: normal inspection, full ROM, paraspinal tenderness. Absent: tenderness, CVA tenderness (R), CVA tenderness (L) - Neurological Exam Neurological exam: Present: alert, normal gait, other (Extraocular movements intact. Tongue midline. No facial droop. Facial sensation intact to light touch in the V1, V2, V3 distribution bilaterally. 5 and 5 strength in 4 extremities.. Sensation is intact to light touch in 4 extremities.). Absent: motor sensory deficit - Psychiatric Psychiatric exam: Present: anxious - Skin Skin exam: Present: warm, dry, intact, normal color. Absent: rash ED Course Vital Signs 03/16/19 03/16/19 10:24 11:09 Temperature 98.5 F 99.7 F H Pulse Rate 83 81 Respiratory 20 14 Rate Blood Pressure 157/88 144/75 [right] O2 Sat by Pulse 100 100 Oximetry ED Medical Decision Making - Lab Data Result diagrams: 03/16/19 11:01 03/16/19 11:01 Vital Signs 03/16/19 03/16/19 10:24 11:09 Temperature 98.5 F 99.7 F H Pulse Rate 83 81 Respiratory 20 14 Rate Blood Pressure 157/88 144/75 [right] O2 Sat by Pulse 100 100 Oximetry Lab Results 03/16/19 03/16/19 03/16/19 Range/Units 11:01 11:01 12:20 WBC 6.9 (4.5-11.0) K/mm3 RBC 4.37 (3.65-5.03) M/mm3 Hgb 11.1 (10.1-14.3) gm/dl Hct 33.2 (30.3-42.9) % MCV 76 L (79-97) fl MCH 26 L (28-32) pg MCHC 34 (30-34) % RDW 16.4 H (13.2-15.2) % Plt Count 525 H (140-440) K/mm3 Lymph % (Auto) 19.2 (13.4-35.0) % Preston % (Auto) 5.9 (0.0-7.3) % Eos % (Auto) 1.8 (0.0-4.3) % Baso % (Auto) 0.6 (0.0-1.8) % Lymph # 1.3 (1.2-5.4) K/mm3 Preston # 0.4 (0.0-0.8) K/mm3 Eos # 0.1 (0.0-0.4) K/mm3 Baso # 0.0 (0.0-0.1) K/mm3 Seg Neutrophils % 72.5 H (40.0-70.0) % Seg Neutrophils # 5.0 (1.8-7.7) K/mm3 Sodium 140 (137-145) mmol/L Potassium 3.4 L (3.6-5.0) mmol/L Chloride 105.1 (98-107) mmol/L Carbon Dioxide 23 (22-30) mmol/L Anion Gap 15 mmol/L BUN 8 (7-17) mg/dL Creatinine 0.8 (0.7-1.2) mg/dL Estimated GFR > 60 ml/min BUN/Creatinine Ratio 10 % Glucose 107 H (65-100) mg/dL Calcium 9.2 (8.4-10.2) mg/dL Magnesium (1.7-2.3) mg/dL Total Creatine Kinase 18 L (30-135) units/L Troponin T < 0.010 (0.00-0.029) ng/mL 03/16/19 Range/Units Unknown WBC (4.5-11.0) K/mm3 RBC (3.65-5.03) M/mm3 Hgb (10.1-14.3) gm/dl Hct (30.3-42.9) % MCV (79-97) fl MCH (28-32) pg MCHC (30-34) % RDW (13.2-15.2) % Plt Count (140-440) K/mm3 Lymph % (Auto) (13.4-35.0) % Preston % (Auto) (0.0-7.3) % Eos % (Auto) (0.0-4.3) % Baso % (Auto) (0.0-1.8) % Lymph # (1.2-5.4) K/mm3 Preston # (0.0-0.8) K/mm3 Eos # (0.0-0.4) K/mm3 Baso # (0.0-0.1) K/mm3 Seg Neutrophils % (40.0-70.0) % Seg Neutrophils # (1.8-7.7) K/mm3 Sodium (137-145) mmol/L Potassium (3.6-5.0) mmol/L Chloride (98-107) mmol/L Carbon Dioxide (22-30) mmol/L Anion Gap mmol/L BUN (7-17) mg/dL Creatinine (0.7-1.2) mg/dL Estimated GFR ml/min BUN/Creatinine Ratio % Glucose (65-100) mg/dL Calcium (8.4-10.2) mg/dL Magnesium 2.10 (1.7-2.3) mg/dL Total Creatine Kinase (30-135) units/L Troponin T (0.00-0.029) ng/mL - EKG Data -: EKG Interpreted by Me EKG shows normal: sinus rhythm Rate: normal - EKG Data When compared to previous EKG there are: no significant change 03/16/19 12:55 EKG today is not consistent with ST elevation myocardial infarction. The EKG shows a sinus rhythm, 76 bpm, normal axis, poor R wave progression, borderline left ventricular hypertrophy, the EKG is abnormal, the EKG is not consistent with ST TN, the EKG is unchanged from prior EKG. - Radiology Data Radiology results: report reviewed X-ray of the chest is unremarkable for acute disease. Previous cardiac catheterization report, CT scan of the chest are reviewed and appreciated. - Medical Decision Making Differential diagnosis, including not limited to: Viral syndrome, fibromyalgia flare/exacerbation, musculoskeletal patch trapezius pain Assessment and plan: 43-year-old female with a primary complaint of reproducible left-sided trapezius pain. The patient is afebrile with reassuring vital signs. She is not tachycardic, she is not hypoxic, she is not tachypneic, she is low risk by well's criteria, and perc negative He does not endorse chest pain to myself, and the troponin was sent prior to my personal evaluation. I do not suspect acute coronary syndrome at this time, given recent risk stratification testing. Patient denied discussed the natural history of fibromyalgia, and musculoskeletal pain, and we also talked about complementary methods to treat pain, including injection, massage, acupuncture, ice packs and heat packs, and nonpharmacologic methods to manage anxiety. The patient does not appear to have an emergent condition at this time. Critical care attestation.: If time is entered above; I have spent that time in minutes in the direct care of this critically ill patient, excluding procedure time. ED Disposition Clinical Impression: Fibromyalgia, Musculoskeletal disorder involving upper trapezius muscle Disposition: DC-01 TO HOME OR SELFCARE Is pt being admited?: No Does the pt Need Aspirin: No Condition: Stable Additional Instructions: Rest, avoid heavy lifting, and avoid strenuous physical activities. Take the pain medications as needed/directed. Patient likely experiencing natural expected history of underlying muscular skeletal pain, may be secondary to underlying fibromyalgia. Pain will likely persist on a long-term basis, but states typically, this condition is not immediately dangerous or life- threatening. Patient may take the pain medications as needed/directed, and patient may benefit from alternative therapy, such as massage, acupuncture, heat packs, ice packs, and physical therapy. Recommend follow-up with a primary care doctor within the next 2 weeks. Please return to the emergency room right away with new, worse or different symptoms not present on the initial emergency room evaluation. Referrals: [facility] [Provider Group] - 3-5 Days [facility] [Provider Group] - 3-5 Days
[2019-03-16 12:04] LABS: BUN/Creatinine Ratio 10; Blood Urea Nitrogen 8 mg/dL (7-17); Calcium 9.2 mg/dL (8.4-10.2); Hemolysis Index 0
[2019-03-16] MEDS ORDERED: POTASSIUM CHLORIDE ER 20 MEQ TAB PO ONE (12:27)
[2019-03-16 13:26] VITALS: BP 144/76
== END 2019-03-16 13:26 | disposition home or self-care (01) ==
LOC: ED 10:09
DX: M79.7 Fibromyalgia (principal); I10 Essential (primary) hypertension; F41.9 Anxiety disorder, unspecified; Z79.899 Other long term (current) drug therapy; Z88.5 Allergy status to narcotic agent
CPT/HCPCS: 36415; 71046; 80048; 82550; 83735; 84484; 85025; 93005; 93010; 96372; 99284; J1885